=== PATIENT | male | born 2000 | race Caucasian/White ===

== ENCOUNTER 2020-10-31 21:24 | Emergency (ER) | payer MEDICAID, OTHER ==
[~2020-10-31] VITALS: Ht 165.1 cm; Wt 53.8 kg
[~2020-10-31 21:24] MED LIST: ACET-704 PO
[2020-10-31 21:39] VITALS: BP 139/72
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
== END 2020-10-31 23:47 | disposition home or self-care (01) ==
LOC: ER 21:24
DX: M25.572 Pain in left ankle and joints of left foot (principal)
CPT/HCPCS: 73610; 73630; 99284